=== PATIENT | female | born 1990 | race Caucasian/White ===

== ENCOUNTER 2016-07-29 12:03 | Emergency (ER) | payer BC, MEDICAID ==
[2016-07-29 12:41] VITALS: BP 135/84
--- NOTE | 2016-07-29 13:50 | EDM.PDOC ---
ED HISTORY OF PRESENT ILLNESS - General Chief Complaint: Respiratory Problem Stated Complaint: COUGH Time Seen by Provider: 07/29/16 12:40 Source: Reports: Patient History Limitations: Reports: No limitations - History of Present Illness INITIAL COMMENTS - FREE TEXT/NARRATIVE: pt arrived with a cough and feeling like her ears are plugged. Timing/Duration: Reports: Day(s):, Getting worse Location, General: Reports: chest, other (pt has been running a fever. ) Associated Symptoms: Reports: cough, fever/chills, malaise - Related Data Allergies/ADRs: Allergies Allergy/AdvReac Type Severity Reaction Status Date / Time Sulfa (Sulfonamide Allergy Rash Verified 05/11/16 20:11 Antibiotics) Home Meds: Home Meds NK [No Known Home Meds] 05/26/13 [History] Past Medical History - Past Health History Medical/Surgical History: Denies Medical/Surgical History [employer] History: Reports: Psychiatric History: Reports: Anxiety, Depression - Infectious Disease History Infectious Disease History: Reports: Chicken pox Social & Family History - Tobacco Use Smoking Status *Q: Former Smoker Years of Tobacco use: 10 Packs/Tins Daily: 1 Used Tobacco, but Quit: Yes Month Tobacco Last Used: june - Caffeine Use Caffeine Use: Reports: Coffee, Energy drinks - Recreational Drug Use Recreational Drug Use: No ED ROS GENERAL - Review of Systems Review Of Systems: See Below Constitutional: Reports: fever, chills, malaise HEENT: Reports: Other ( ears are plugged) Respiratory: Reports: Cough Cardiovascular: Reports: No symptoms Endocrine: Reports: no symptoms GI/Abdominal: Reports: No symptoms : Reports: no symptoms ED EXAM, GENERAL - Physical Exam Exam: See Below Free Text/Narrative:: pt has a fever and she has been coughing alot. She has no sob. She feels like the ears are plugged. Exam Limited By: No limitations General Appearance: alert Ears: other ( fluid behind both drums. ) Nose: normal inspection Throat/Mouth: Normal inspection Head: atraumatic Neck: normal inspection Respiratory/Chest: other ( a few rhonchi in the upper lung [place]. ) Cardiovascular: regular rate, rhythm GI/Abdominal: soft, non tender Rectal (Female) Exam: Deferred Back Exam: normal inspection Extremities: normal inspection Course - Vital Signs Last Recorded V/S: Last Vital Signs Temp 37.3 C 07/29/16 12:39 Pulse 122 H 07/29/16 12:39 Resp 14 07/29/16 12:39 BP 135/84 07/29/16 12:39 Pulse Ox 95 07/29/16 12:39 Departure - Departure Time of Disposition: 13:49 Disposition: Home, Self-Care 01 Condition: fair Clinical Impression: Bronchitis, Serous otitis media Referrals: PCP,None [Primary Care Provider] - Forms: ED Department Discharge Care Plan Goals: push fluids, cool mist humidifier, zithromax 250 2tabs now, 1 tab daily for 7 days, robitussin ac 1-2 tsp q6h prn for cough.
== END 2016-07-29 14:06 | disposition home or self-care (01) ==
LOC: JP.ED 12:03
DX: J40 Bronchitis, not specified as acute or chronic (principal); H65.90 Unspecified nonsuppurative otitis media, unspecified ear; Z87.891 Personal history of nicotine dependence; Z88.2 Allergy status to sulfonamides
CPT/HCPCS: 99283